=== PATIENT | female | born 1990 | race Caucasian/White ===

== ENCOUNTER → 2018-09-03 | Outpatient (CLI) | payer OTHER | LOC: FIMAGING 10:58 | PROVIDERS: ATTEND Advanced Practice Midwife | DX: Z34.02 Encounter for supervision of normal first pregnancy, second trimester (principal); Z3A.20 20 weeks gestation of pregnancy ==

== ENCOUNTER 2019-01-15 06:53 | Observation (INO) | payer OTHER ==
[2019-01-15] MEDS ORDERED: hydrOXYzine HCL 25 MG TAB PO ONE (08:18)
--- NOTE | 2019-01-15 08:22 | SOAPPROG ---
SOAP Progress Note Assessment/Plan: Assessment: 1. early labor 2. reassuring status Plan: 1. d/c home to await active labor 2. f/u in office PRN 01/15/19 08:21 Subjective: Pt states that contractions have subsided since arriving at hospital. Would prefer to be home for early labor. Objective: VSS - Time Spent With Patient Time Spent With Patient: 20 min ICD10 Worksheet Patient Problems: Problems Problem Status Onset 40 weeks gestation of Acute Acute
== END 2019-01-15 08:45 | disposition home or self-care (01) ==
LOC: FLD 06:53
PROVIDERS: ADMIT Advanced Practice Midwife; ATTEND Advanced Practice Midwife
DX: O47.1 False labor at or after 37 completed weeks of gestation (principal); Z3A.40 40 weeks gestation of pregnancy
CPT/HCPCS: 59025; G0378

== ENCOUNTER 2019-01-15 20:02 | Inpatient (IN) | payer OTHER ==
[2019-01-15] MEDS ORDERED: TERBUTALINE SULFATE 1 MG/ML VIAL IV PRN (20:08)
[2019-01-15] MEDS ORDERED: PENICILLIN G POTASSIUM 5,000,000 UNIT in D5W 150 ML IV ONE (20:08)
[2019-01-15] MEDS ORDERED: OXYTOCIN/RINGERS LACTATE 1,000 ML IV PRN (20:08)
[2019-01-15] MEDS ORDERED: EPSOM SALT 454 GM TP PRN (20:08)
[2019-01-15] MEDS ORDERED: LIDOCAINE 1% 300 MG/30 ML SDV SC PRN (20:08)
[2019-01-15] MEDS ORDERED: OLIVE OIL 118 ML BTL MISC PRN (20:08)
[2019-01-15] MEDS ORDERED: IBUPROFEN 600 MG TAB PO PRN (20:08)
[2019-01-15] MEDS ORDERED: MISOPROSTOL 200 MCG TAB PO PRN (20:08)
[2019-01-15] MEDS ORDERED: AMMONIA AROMATIC 1 EACH AMP IH PRN (20:08)
--- NOTE | 2019-01-15 20:09 | PDGENHP ---
History and Physical History and Physical: Care: [facility] HPI: Dari Roque is a 28yo with IUP@ 40-0 weeks that presents to L&D with complaints of contractions worse since 1400. Was seen this morning for labor check and wanted to go home for early labor. She states frequency and intensity has increased since 1400. She EDC: 01/15/2019 which is based on LMP which is known and consistent with Ultrasound at 8 weeks. Her is complicated by: +GBS bacteruria Review of Systems: Constitutional: Denies any fever, chills, or fatigue HEENT: denies any visual changes, difficulty swallowing, hearing loss Cardiovascular: Denies any chest pain, palpitations, leg swelling Respiratory: denies any cough, wheezing, or shortness of breathe GI: Denies any nausea, vomiting, diarrhea, constipation : denies any dysuria, urgency, frequency, vaginal bleeding Musculoskeletal: denies any muscle or bone pain Skin: denies any rashes Neuro: denies any headache, seizures, lightheadedness, dizziness, or loss of consciousness Psychiatric: denies any depression, anxiety, or SI/HI thoughts HISTORY: Previous OB history: G1 Past medical history: noncontributory Past surgical history: oral surgery Social: Denies any alcohol, tobacco, or drug use. to [place]. works in [employer] Family history: Not relevant Medications: PNV Allergies (list reaction): NKDA LABS: Rh: O+ ABS: Neg Rubella: Immune HbsAg: NR HIV: NR VDRL: NR 1hr: 65 GC: Neg Chlamydia: Neg Pap: Normal GBS: + PHYSICAL EXAM: Constitutional: WN, A&Ox3 HEENT: normocephalic atraumatic, supple Skin: Warm, dry, intact Heart: RRR, no murmur Chest: CTA-B Abdomen: Soft, nontender, gravid SVE: 5/80/-2 Extremities: trace edema, negative homans sign Neuro: grossly normal Psych: normal affect assessment: FHT baseline 120's +accels, no decels, moderate variability Contractions: toco irregular Assessment: * 28yo with IUP@ 40-0wks * labor * GBS+ * cat 2 FHR tracing Plan: * Admit to L&D * IV abx 2/2 +GBS * hydrotherapy for pain relief at this time * VANESSA PRN per pt request * reassess 2-4hr/PRN Today's visit was approximately 30 min, of which >50% of visit 20 min, was spent face to face with pt on direct counseling/coordination of care.
[2019-01-15] MEDS ORDERED: LIDOCAINE 1% 300 MG/30 ML SDV ONE (20:18)
[2019-01-15] MEDS ORDERED: TERBUTALINE SULFATE 1 MG/ML VIAL ONE (20:19)
[2019-01-15] MEDS ORDERED: MISOPROSTOL 200 MCG TAB ONE (20:19)
[2019-01-15] MEDS ORDERED: OXYTOCIN 10 UNIT/ML VIAL ONE (20:19)
[2019-01-15] MEDS ORDERED: OLIVE OIL 118 ML BTL MISC ONE (20:19)
[2019-01-15] MEDS ORDERED: AMMONIA AROMATIC 1 EACH AMP IH ONE (20:19)
[2019-01-15] MEDS ORDERED: AMPICILLIN SODIUM 2 GM in NS 100 ML IV ONE (20:30)
[2019-01-15 20:34] LABS: PLATELET COUNT 188 10^3/uL (150-400)
[2019-01-16] MEDS: AMPICILLIN SODIUM 1 GM in NS 50 ML IV SCH ×3 (00:02→08:34)
[2019-01-16] MEDS ORDERED: PENICILLIN G POTASSIUM 2,500,000 UNIT in D5W 150 ML IV SCH (00:08)
--- NOTE | 2019-01-16 01:46 | PREANESOB ---
Obstetric Pre-Anesthesia Info - General Info : 1 Para: 0 SHEYLA: 01/15/19 Gestational Age: 40 week(s) and 0 day(s) - Info Status: Full Term Monitors: External FHR Pattern: Reassuring - Labor Status Indications for Labor Analgesia: Pain Control Labor Epidural: Proposed Anesthesia Allergies/Adverse Reactions: Allergy/AdvReac Type Severity Reaction Status Date / Time No Known Drug Allergies Allergy Verified 01/15/19 07:28 Home Medications: Medication Instructions Recorded Dha 1 tab PO DAILY 01/15/19 Lactobacillus Acidophilus 1 each PO DAILY 01/15/19 [Probiotic] [place]-3 1 cap PO DAILY 01/15/19 Pnv No.121/Iron/Folic Acid 1 each PO DAILY 01/15/19 [ Multivitamin Tablet] Vitamin B-6 1 cap PO DAILY 01/15/19 Visit Medications: Generic Name Dose Route Start Last Admin Trade Name Freq PRN Reason Stop Dose Admin Ammonia (Aromatic Spirit) 1 each 01/15/19 20:08 Ammonia Aromatic IH 01/25/19 20:07 ONCE PRN Fainting Lactated Ringer's 1,000 mls @ 0 mls/hr 01/15/19 20:08 Lr IV 01/16/19 20:07 PRN PRN SEE PROTOCOL CONDITIONS Protocol Per Protocol Oxytocin/Lactated Ringer's 1,000 mls @ 999 mls/hr 01/15/19 20:08 Pitocin 20 Units/Lr (Premix) IV PRN PRN Post bleeding Ampicillin Sodium 1 gm/ Sodium 50 mls @ 100 mls/hr 01/16/19 00:30 01/16/19 00 :02 Chloride IV 02/15/19 00:29 50 mls Q4H HOMERO Administration Ibuprofen 600 mg 01/15/19 20:08 Motrin PO ONCE PRN post , pain Lidocaine HCl 300 mg 01/15/19 20:08 Lidocaine Hcl 1% SC 07/14/19 20:07 ONCE PRN episiotomy Magnesium Sulfate 454 gm 01/15/19 20:08 Epsom Salt TP 07/14/19 20:07 Q1H PRN perineal discomfort Misoprostol 800 - 1,000 mcg 01/15/19 20:08 Cytotec PO 07/14/19 20:07 ONCE PRN Vaginal Atony/Bleeding [place] Oil 118 ml 01/15/19 20:08 Sweet Oil MISC 07/14/19 20:07 ONCE PRN perineal massage Terbutaline Sulfate 0.25 mg 01/15/19 20:08 Brethine IV 07/14/19 20:07 ONCE PRN Tachysystole Discontinued Medications Generic Name Dose Route Start Last Admin Trade Name Nadeem PRN Reason Stop Dose Admin Ammonia (Aromatic Spirit) Confirm 01/15/19 20:19 Ammonia Aromatic Administered 01/15/19 20:20 Dose 1 each IH .STK-MED ONE Ampicillin Sodium 2 gm/ Sodium 100 mls @ 200 mls/hr 01/15/19 20:30 01/15/19 20:26 Chloride IV 01/15/19 20:59 100 mls ONCE ONE Administration Lidocaine HCl Confirm 01/15/19 20:18 Lidocaine Hcl 1% Administered 01/15/19 20:19 Dose 300 mg .ROUTE .STK-MED ONE Misoprostol Confirm 01/15/19 20:19 Cytotec Administered 01/15/19 20:20 Dose 1,000 mcg .ROUTE .STK-MED ONE [place] Oil Confirm 01/15/19 20:19 Sweet Oil Administered 01/15/19 20:20 Dose 118 ml MISC .STK-MED ONE Oxytocin Confirm 01/15/19 20:19 Pitocin Administered 01/15/19 20:20 Dose 40 unit .ROUTE .STK-MED ONE Terbutaline Sulfate Confirm 01/15/19 20:19 Brethine Administered 01/15/19 20:20 Dose 1 mg .ROUTE .STK-MED ONE - Vital Signs Height/Weight (Nursing): Height 165.1 cm Weight 65.771 kg Labs: 01/15/19 20:20 Patient ABO/Rh O POSITIVE 01/15/19 20:20
[2019-01-16] MEDS ORDERED: PHENYLEPHRINE HCL 100 MCG/ML SYR ONE (01:48)
[2019-01-16] MEDS ORDERED: BUPIVACAINE 0.25% 10 ML SDV ONE (01:48)
[2019-01-16] MEDS ORDERED: fentaNYL 2MCG/ML/BUP 0.1% RTU 100 ML BAG EP ONE (01:48)
[2019-01-16] MEDS: LR 1,000 ML IV PRN ×2 (01:50→01:51)
--- NOTE | 2019-01-16 01:53 | OBPROG ---
Labor Progress Note Assessment/Plan: Assessment: [id number] with IUP@ 40-1 weeks labor GBS+ +FHTs Plan: VANESSA per pt request recommended pain relief to assist in forward progression of labor reassess 2-4hr PRN AROM PRN Subjective/Intrapartum Course: 01/16/19 01:51 Pt breathing through each contraction. She is coping ok, but less than when first arrived. She states she has no more reserve and would like some pain relief at this time. Harrison @ BS and supportive. Objective: 01/15/19 20:20 Patient ABO/Rh O POSITIVE 01/15/19 20:20 - SVE Dilation (cm): 7 Effacement (%): 90 Station: -1 Membranes: Intact - Contraction Pattern Assessment Current Contraction Pattern: Regular - FHR Assessment Phipps FHR (bpm): 120 Oxytocin Orders Assessment - Pre-Induction/Augmentation Assessment Gestational Age: 40 week(s) and 0 day(s) ICD10 Worksheet Patient Problems: Problems Problem Status Onset 40 weeks gestation of Acute Acute
[2019-01-16] MEDS ORDERED: PHENYLEPHRINE HCL 100 MCG/ML SYR IVP PRN (02:28)
[2019-01-16] MEDS ORDERED: LR 500 ML IV SCH (02:30)
[2019-01-16] MEDS ORDERED: fentaNYL 2MCG/ML/BUP 0.1% RTU 100 ML EP SCH (02:30)
--- NOTE | 2019-01-16 06:56 | OBPROG ---
Labor Progress Note Assessment/Plan: Assessment: [id number] with IUP@ 40-1 weeks labor GBS+ Cat 1 FHR AROM for clear Plan: reassess in 1-2 hour consider pitocin if no change cont IV abx anticipate Subjective/Intrapartum Course: 01/16/19 01:51 Pt breathing through each contraction. She is coping ok, but less than when first arrived. She states she has no more reserve and would like some pain relief at this time. [place] @ BS and supportive. 01/16/19 06:54 Pt was able to rest 2-3 hours. She denies any pain. She feels thankful for opportunity to rest. Ready to have baby. She is agreeable to AROM. FOB @ BS and supportive. Objective: 01/15/19 20:20 Patient ABO/Rh O POSITIVE 01/15/19 20:20 - SVE Dilation (cm): 8 Effacement (%): 90 Station: -1 Membranes: AROM Amniotic Fluid Color: Clear - Contraction Pattern Assessment Current Contraction Pattern: Regular - FHR Assessment Phipps FHR (bpm): 120 FHR Pattern Variability: Moderate FHR Category: 1 - Procedures Non-surgical Procedures: Amniotomy Oxytocin Orders Assessment - Pre-Induction/Augmentation Assessment Gestational Age: 40 week(s) and 0 day(s) ICD10 Worksheet Patient Problems: Problems Problem Status Onset 40 weeks gestation of Acute Acute
[2019-01-16] MEDS ORDERED: METHYLERGONOVINE MAL 0.2 MG/ML INJ ONE (11:11)
[2019-01-16] MEDS ORDERED: METHYLERGONOVINE MAL 0.2 MG/ML INJ IM ONE (11:13)
[2019-01-16] MEDS ORDERED: HYDROCORTISONE 0.5% CREAM TP PRN (12:04)
[2019-01-16] MEDS ORDERED: SIMETHICONE 80 MG TAB CHEW PO PRN (12:04)
[2019-01-16] MEDS ORDERED: ceFAZolin 2 GM/DEXTROSE 100 ML IV ONE (12:10)
--- NOTE | 2019-01-16 12:15 | OBDEL ---
Info Type: Vaginal Presentation at Delivery: Vertex L&D Analgesia/Anesthesia Type: Epidural GBS+: Yes Antibiotic Used for + GBS: Ampicillin Intrapartum Medications: Generic Name Dose Route Start Last Admin Trade Name Nadeem PRN Reason Stop Dose Admin Lactated Ringer's 1,000 mls @ 0 mls/hr 01/15/19 20:08 01/16/19 01:51 Lr IV 01/16/19 20:07 1,000 mls PRN PRN Administration SEE PROTOCOL CONDITIONS Protocol Per Protocol Discontinued Medications Generic Name Dose Route Start Last Admin Trade Name Nadeem PRN Reason Stop Dose Admin Ampicillin Sodium 2 gm/ Sodium 100 mls @ 200 mls/hr 01/15/19 20:30 01/15/19 20:26 Chloride IV 01/15/19 20:59 100 mls ONCE ONE Administration Ampicillin Sodium 1 gm/ Sodium 50 mls @ 100 mls/hr 01/16/19 00:30 01/16/19 08 :34 Chloride IV 02/15/19 00:29 50 mls Q4H HOMERO Administration Ibuprofen 600 mg 01/15/19 20:08 01/16/19 12:02 Motrin PO 600 mg ONCE PRN Administration post , pain - Hospital Course Intrapartum: 01/16/19 01:51 Pt breathing through each contraction. She is coping ok, but less than when first arrived. She states she has no more reserve and would like some pain relief at this time. Harrison @ BS and supportive. 01/16/19 06:54 Pt was able to rest 2-3 hours. She denies any pain. She feels thankful for opportunity to rest. Ready to have baby. She is agreeable to AROM. HAILEY @ BS and supportive. Indications for Delivery: Spontaneous Labor Vaginal Delivery - Delivery Provider Delivery Physician/CNM: Merle Villagomez - Labor and Delivery Onset of Contractions Date: 01/15/19 Onset of Contractions Time: 14:00 Onset of Contractions Type: Spontaneous Rupture of Membranes Date: 01/16/19 Rupture of Membranes Time: 06:20 Rupture of Membranes Type: Artificial Amniotic Fluid Color: Clear Dilation Complete Date: 01/16/19 Dilation Complete Time: 07:49 Placenta Delivery Date: 01/16/19 Placenta Delivery Time: 11:05 Total Hours of Labor: 21 Non-surgical Procedures: Amniotomy Laceration: 2nd Degree Repair: 3-0, Vicryl Vaginal Sponge Count Correct: Yes Vaginal Needle Count Correct: Yes Vaginal Sweep Performed: Yes EBL: 850 Delivery Events: Post Hemorrhage (with retained placenta - BS currettage done by Roseann Freed.), Other (Specify) (compound left hand) Delivery Comment: pushed for 3 hours, slow descent. baby delivered with left compound hand. increased bleeding noted , manual sweep done, small placenta pieces were removed. uterus still boggy, methergine given, followed by cytotec. bleeding and clots still noted; BSUS done, which revealed NAPOLEON with clots and ?RPOC. Roseann Freed called to BS for evaluation. Roseann Freed, did BS currettage which was followed by US that confirms lining and N[place]LEON without RPOC. Bleeding now minimal and uterus firm. Data SHEYLA: 01/15/19 Gestational Age: 40 week(s) and 1 day(s) Phipps Delivery Date: 01/16/19 Delivery Time: 10:57 Sex of : Male Score (1 Min): 7 Score (5 Min): 9 ICD10 Worksheet Patient Problems: Problems Problem Status Onset hemorrhage Acute (spontaneous vaginal delivery) Acute Second degree perineal laceration during delivery Acute 40 weeks gestation of Acute Acute - ICD10 Problem Qualifiers (1) (spontaneous vaginal delivery) (2) hemorrhage (3) Second degree perineal laceration during delivery
--- NOTE | 2019-01-16 17:10 | SOAPPROG ---
SOAP Progress Note Assessment/Plan: Assessment: LATE NOTE ABOUT PPH AND POST DELIVERY CURRETTAGE CALLED TO SEE PT BY PS AFTER CONTINUED SLOW BLEEDING AND S/P CYTOTEC, METHERGINE AND MANUAL SWEEP TO EVAL FOR RPOCs CALLED APPROX 11:30A Plan: PP CURRETTING DONE UNDER DIRECT VISUAL GUIDANCE WITH ULTRASOUND. TISSUE OBTAINED. BLEEDING CONTROLLED. Pt to have ancef x 1 dose and redose methergine if cont bld from NAPOLEON 01/16/19 17:02 Subjective: Called by PS after - viable male - after 3 1/2 hours of pushing with compond presentation. Placenta del without prob but questionable area of possible incomplete tissue. cont bleeding - slow but with persistent clots....EBL approx 7-800 at time of call. pt had rec'd cytotec and methergine in add'n to pitocin. ?tissue in NAPOLEON upon manual sweep by PS. bldr emptied by straight cath. VANESSA worked well but bag completed. VSS and starting hct 39. ultrasound done and evidence of thin endometrial stripe in fundus and mid uterus , but ? tissue vs clot in NAPOLEON. fundus firm on exam. under direct visualiztion , sharp curretting with Roly's currette and small fragments of placental tissue obtained. clotting and flow decreased and lining appeared better on u/ s in NAPOLEON. Pt tolerated curretting without problems and minimal discomfort. slight decrease of b/p to 90's-100's/ 50's but pt improved over time and hydration. Pt stable after procedure Objective: Vital Signs Temp Pulse Resp BP Pulse Ox 36.7 C 98 15 123/77 H 97 01/16/19 16:30 01/16/19 16:30 01/16/19 16:30 01/16/19 16:30 01/16/19 16:30 Laboratory Results 01/15/19 20:20 01/15/19 01/16/19 01/17/19 05:59 05:59 05:59 Output Total 1800 Balance -1800 ICD10 Worksheet Patient Problems: Problems Problem Status Onset hemorrhage Acute (spontaneous vaginal delivery) Acute Second degree perineal laceration during delivery Acute currettage Acute 40 weeks gestation of Acute Acute
[2019-01-16] MEDS: ACETAMINOPHEN 325 MG TAB PO PRN (18:10)
[2019-01-16] MEDS: IBUPROFEN 600 MG TAB PO PRN (18:10)
[2019-01-16] MEDS: DOCUSATE SODIUM 100 MG CAP PO PRN (18:15)
[2019-01-17] MEDS: ACETAMINOPHEN 325 MG TAB PO PRN ×4 (00:09→17:48)
[2019-01-17] MEDS: IBUPROFEN 600 MG TAB PO PRN ×4 (00:09→17:47)
[2019-01-17] MEDS ORDERED: FERROUS SULFATE 325 MG TAB PO SCH (09:00)
[2019-01-17] MEDS: DOCUSATE SODIUM 100 MG CAP PO PRN (09:45)
[2019-01-17] MEDS: FERROUS SULFATE 325 MG TAB PO SCH ×2 (09:45→21:53)
--- NOTE | 2019-01-17 10:20 | OBPP ---
Progress Note Assessment/Plan: Assessment: 28 y/o P1 s/p , pp hemorrhage ppd #1 going well Anemia VSS ff/vag bleeding wnl Plan: Routine pp care bid ferrous sulfate Anticipate d/c tomorrow 01/17/19 10:17 Subjective/ Course: 01/17/19 10:19 Feeling good, just tired. Reports lochia to be light, pain controlled with oral medication, tolerating regular diet and voiding Objective: 01/17/19 02:00 Patient ABO/Rh O POSITIVE 01/15/19 20:20 Temp Pulse Resp BP Pulse Ox 36.9 C 70 14 107/47 L 97 01/17/19 08:38 01/17/19 08:38 01/17/19 08:38 01/17/19 08:38 01/17/19 08:38 Uterine Position/Fundal Height: Umbilicus -1 Uterine Tone: Firm
--- NOTE | 2019-01-17 12:06 | POSTANESTH ---
Post Anesthetic Evaluation Cardiovascular Status: Normal, Stable Respiratory Status: Normal, Stable Level of Consciousness/Mental Status: Can Participate in Eval Pain Control: Adequate, Prn Tx Ordered Nausea/Vomiting Control: Adequate, Prn Tx Ordered Complications Possibly Related to Anesthesia: None Noted (Pt doing well s/p VANESSA. No backache, no headache, full return of motor and sensory function in lower extremities.)
[2019-01-18] MEDS: IBUPROFEN 600 MG TAB PO PRN ×3 (00:18→11:45)
[2019-01-18] MEDS: ACETAMINOPHEN 325 MG TAB PO PRN ×2 (06:13→11:45)
[2019-01-18] MEDS: FERROUS SULFATE 325 MG TAB PO SCH (11:46)
--- NOTE | 2019-01-18 12:23 | OBGCSDC ---
General Delivery Information - General Info : 1 Para: 1 Abortions: 0 Type: Vaginal L&D Analgesia/Anesthesia Type: Epidural Admission Date: 01/15/19 Labs: Patient ABO/Rh O POSITIVE 01/15/19 20:20 Hct 25.8 % (38.0-47.0) L 01/17/19 02:00 Temp Pulse Resp BP 01/17/19 22:00 36.5 C 68 16 104/65 - Hospital Course Intrapartum: 01/16/19 01:51 Pt breathing through each contraction. She is coping ok, but less than when first arrived. She states she has no more reserve and would like some pain relief at this time. Harrison @ BS and supportive. 01/16/19 06:54 Pt was able to rest 2-3 hours. She denies any pain. She feels thankful for opportunity to rest. Ready to have baby. She is agreeable to AROM. FOB @ BS and supportive. : 01/17/19 10:19 Feeling good, just tired. Reports lochia to be light, pain controlled with oral medication, tolerating regular diet and voiding 01/18/19 12:22 No c/o. Feedings were clustered throughout the night. Pain management is effective. Voiding without difficulty and had BM this morning. Vaginal - Delivery Provider Delivery Physician/CNM: Merle Villagomez - Diagnosis Labor: Spontaneous Rupture of Membranes Type: Artificial Amniotic Fluid Color: Clear Laceration: 2nd Degree Repair: 3-0, Vicryl Delivery Events: Post Hemorrhage (with retained placenta - BS currettage done by Roseann Freed.), Other (Specify) (compound left hand) - Procedures Non-surgical Procedures: Amniotomy - Delivery Non-surgical Procedures: Amniotomy EBL: 850 Data SHEYLA: 01/15/19 Gestational Age: 40 week(s) and 3 day(s) Phipps Delivery Date: 01/16/19 Delivery Time: 11:57 Sex of : Male [place] Weight (gm): 3725 g Score (1 Min): 7 Score (5 Min): 9 Discharge Information - Discharge Information Condition: Good Instruction/Follow Up: Two Weeks, Four Weeks, Six Weeks
[2019-01-18 13:43] VITALS: BP 115/78
== END 2019-01-18 14:09 | disposition home or self-care (01) | DRG 797 ==
LOC: FLD 20:02 → FOB 01-16 16:26
PROVIDERS: ADMIT Advanced Practice Midwife; ATTEND Advanced Practice Midwife
DX: O70.1 Second degree perineal laceration during delivery (principal); O72.0 Third-stage hemorrhage; O99.820 Streptococcus B carrier state complicating pregnancy; O32.6XX0 Maternal care for compound presentation, not applicable or unspecified; Z3A.40 40 weeks gestation of pregnancy; Z37.0 Single live birth
CPT/HCPCS: J0290; J0690; J2210; J2370; J2590; J3105